=== PATIENT | male | born 1965 | race Caucasian/White ===

== ENCOUNTER 2016-12-19 12:30 | Observation (INO) | payer BC, SELFPAY ==
[~2016-12-19 12:30] MED LIST: ACETAMINOPHEN325 M2 PO; COZAAR100 M1 PO; COZAAR25 M1 PO; CPAP; ERYTHROMYCIN3.5 GM OP; METOPROLOL SUC100 M1 PO; NORCO 5-325 TA1 EACH PO; OMEPRAZOLE40 M2 PO; PERCOCET 5-3251 EACH PO; PERCOCET 5/3251 TAB PO; PRILOSEC OTC20 MG; SILVADENE20 G1 TP; SULFAMYLON60 GM EXT; TOPROL XL25 M1 PO
[2016-12-19] MEDS ORDERED: LEXAPRO10 M2 PO (12:32)
[2016-12-19 13:20] LABS: BASO % 0.4 % (0-2); EOS % 1.1 % (0-7); EOSINOPHIL ABSOLUTE COUNT 0.1 tho/cmm (0.0-0.7); HCT-HEMATOCRIT 44.7 % (36.0-53.5); HGB-HEMOGLOBIN 15.4 gm/dl (13.5-17.0); IMMATURE GRANULOCYTES ABSOLUTE 0.07 tho/cmm (0-0.03); IMMATURE GRANULOCYTES PERCENT 0.8 % (0-0.3); LYMPH % 25.4 % (20-45); LYMPH ABSOLUTE COUNT 2.1 tho/cmm (0.8-4.5); MCH (MEAN CORPUSCULAR HGB) 30.9 pg (28.0-32.0); MCHC MEAN CORPUSCULAR HGB CONC 34.5 % (32.0-36.0); MCV (MEAN CELL VOLUME) 89.6 fl (82.0-96.0); MEAN PLATELET VOLUME 10.4 cmc (9.4-12.4); MONO % 5.7 % (0-12); MONOCYTE ABSOLUTE COUNT 0.5 tho/cmm (0.0-1.2); NEUTROPHIL ABSOLUTE COUNT 5.6 tho/cmm (1.6-8.0); NEUTROPHIL-AUTOMATED 5.6 tho/cmm (1.6-8.0); NEUTROPHILS % 66.6 % (40-80); PLATELET COUNT 250 tho/cmm (150-450); RED BLOOD COUNT 4.99 mil/cmm (4.40-5.70); RED CELL DISTRIBUTION WIDTH 12.9 % (12.4-16.4); WHITE BLOOD COUNT 8.4 tho/cmm (4.0-10.0)
[2016-12-19 13:33] LABS: ANION GAP 16 mmol/L (0-20); BLOOD UREA NITROGEN 9 mg/dl (6-24); CALCIUM 9.6 mg/dl (8.5-10.5); CARBON DIOXIDE-VENOUS 26 mmol/L (22-32); CHLORIDE 101 mmol/l (96-110); CREATININE 1.02 mg/dl (0.60-1.30); GLUCOSE 137 mg/dL (70-110); POTASSIUM 4.2 mmol/L (3.7-5.1); SODIUM 139 mmol/L (135-145); eGFR VALUE FOR BLACK >90 mL/Min
[2016-12-19 17:57] LABS: INR 0.9 INR (0.9-1.1); PROTHROMBIN TIME 10.5 SECONDS (9.0-13.6)
[2016-12-19 18:11] LABS: ALBUMIN 4.2 g/dl (3.5-5.0); BILIRUBIN,DIRECT 0.1 mg/dl (0.0-0.3); BILIRUBIN,INDIRECT 0.3 mg/dL (0.0-1.0); BILIRUBIN,TOTAL 0.4 mg/dl (0.0-1.5); C-REACTIVE PROTEIN 0.5 mg/dl (0-0.9); MAGNESIUM 1.9 mg/dl (1.8-2.6)
[2016-12-19 18:15] LABS: TSH-THYROID STIMULATING HORM. 0.5 uIU/ml (0.40-3.80)
[2016-12-20] MEDS ORDERED: DELTASONE20 MG PO (09:48)
[2016-12-20] MEDS ORDERED: BENADRYL25 M3 PO (09:48)
[2016-12-20] MEDS ORDERED: PEPCID20 M1 PO (09:49)
== END 2016-12-20 10:22 ==
LOC: EDMED 12:30 → EMR2 16:11 → CAR1 17:50
PROVIDERS: Emergency Medicine; ADMIT Internal Medicine
DX: T78.3XXA Angioneurotic edema, initial encounter (principal); T46.5X5A Adverse effect of other antihypertensive drugs, initial encounter; I16.0 Hypertensive urgency; E66.01 Morbid (severe) obesity due to excess calories; G47.33 Obstructive sleep apnea (adult) (pediatric); K21.9 Gastro-esophageal reflux disease without esophagitis; F41.9 Anxiety disorder, unspecified; F32.9 Major depressive disorder, single episode, unspecified; G47.00 Insomnia, unspecified; F10.10 Alcohol abuse, uncomplicated; Z68.41 Body mass index [BMI] 40.0-44.9, adult; Z79.899 Other long term (current) drug therapy; Y90.0 Blood alcohol level of less than 20 mg/100 ml; Z98.890 Other specified postprocedural states
CPT/HCPCS: G0378; G0480; J1200; J2930; J7512

== ENCOUNTER 2017-01-10 22:59 | Observation (INO) | payer BC, SELFPAY ==
[~2017-01-10 22:59] MED LIST changes: +BENADRYL25 M3 PO; +DELTASONE20 MG PO; +LEXAPRO10 M2 PO; +PEPCID20 M1 PO
[2017-01-11 02:12] LABS: BASO % 0.1 % (0-2); EOS % 1.7 % (0-7); EOSINOPHIL ABSOLUTE COUNT 0.1 tho/cmm (0.0-0.7); HCT-HEMATOCRIT 45.3 % (36.0-53.5); HGB-HEMOGLOBIN 15.5 gm/dl (13.5-17.0); IMMATURE GRANULOCYTES ABSOLUTE 0.02 tho/cmm (0-0.03); IMMATURE GRANULOCYTES PERCENT 0.3 % (0-0.3); LYMPH % 23.6 % (20-45); LYMPH ABSOLUTE COUNT 1.8 tho/cmm (0.8-4.5); MCH (MEAN CORPUSCULAR HGB) 30.7 pg (28.0-32.0); MCHC MEAN CORPUSCULAR HGB CONC 34.2 % (32.0-36.0); MCV (MEAN CELL VOLUME) 89.7 fl (82.0-96.0); MEAN PLATELET VOLUME 11.4 cmc (9.4-12.4); MONO % 7.9 % (0-12); MONOCYTE ABSOLUTE COUNT 0.6 tho/cmm (0.0-1.2); NEUTROPHIL ABSOLUTE COUNT 5.1 tho/cmm (1.6-8.0); NEUTROPHIL-AUTOMATED 5.1 tho/cmm (1.6-8.0); NEUTROPHILS % 66.4 % (40-80); PLATELET COUNT 224 tho/cmm (150-450); RED BLOOD COUNT 5.05 mil/cmm (4.40-5.70); RED CELL DISTRIBUTION WIDTH 12.7 % (12.4-16.4); WHITE BLOOD COUNT 7.6 tho/cmm (4.0-10.0)
[2017-01-11 02:53] LABS: ANION GAP 19 mmol/L (0-20); BLOOD UREA NITROGEN 13 mg/dl (6-24); CARBON DIOXIDE-VENOUS 25 mmol/L (22-32); CHLORIDE 102 mmol/l (96-110); CREATININE 0.86 mg/dl (0.60-1.30); GLUCOSE 100 mg/dL (70-110); SODIUM 141 mmol/L (135-145); eGFR VALUE FOR BLACK >90 mL/Min
[2017-01-11 02:54] LABS: CALCIUM 9.5 mg/dl (8.5-10.5); MAGNESIUM 1.7 mg/dl (1.8-2.6)
[2017-01-11 02:55] LABS: ALCOHOL (ETOH) <10 mg/dl (<10)
[2017-01-11 02:56] LABS: POTASSIUM 4.5 mmol/L (3.7-5.1)
[2017-01-11] MEDS ORDERED: BENADRYL25 M3 PO (11:59)
[2017-01-11] MEDS ORDERED: FOLIC ACID1 M1 PO (12:05)
[2017-01-11] MEDS ORDERED: PEPCID20 M1 PO (12:05)
[2017-01-11] MEDS ORDERED: THIAMINE HCL100 M2 PO (12:06)
[2017-01-11] MEDS ORDERED: MULTIVITAMINS1 EAC7 PO (12:07)
[2017-01-11] MEDS ORDERED: CLARITIN10 M6 PO (12:08)
[2017-01-11] MEDS ORDERED: PREDNISONE10 M1 PO (12:16)
[2017-01-11] MEDS ORDERED: EPIPEN0.3 MG/0.2 (12:17)
== END 2017-01-11 12:42 ==
LOC: EDMED 22:59 → EMR2 01-11 02:16 → CAR1 01-11 07:15
PROVIDERS: Internal Medicine; ADMIT Hospitalist
DX: T78.3XXA Angioneurotic edema, initial encounter (principal); I10 Essential (primary) hypertension; F32.9 Major depressive disorder, single episode, unspecified; F41.9 Anxiety disorder, unspecified; G47.33 Obstructive sleep apnea (adult) (pediatric); K21.9 Gastro-esophageal reflux disease without esophagitis; E66.01 Morbid (severe) obesity due to excess calories; F10.10 Alcohol abuse, uncomplicated; Z79.52 Long term (current) use of systemic steroids; Z79.899 Other long term (current) drug therapy
CPT/HCPCS: G0378; G0480; J0171; J1200; J2930; J7030; J7512